=== PATIENT | female | born 1960 | race Caucasian/White ===

== ENCOUNTER → 2017-04-22 | Outpatient (CLI) | payer OTHER ==
--- NOTE | 2017-04-24 09:29 | MAM ---
EXAM DESCRIPTION: 3D Screening BILATERAL CLINICAL HISTORY: 57 yearsFemaleSCREENING no complaints. No family history of breast cancer. Postmenopausal. No HRT.. COMPARISON: Bilateral diagnostic 2-D digital mammography 05/09/2016. Digital bilateral 2-D screening examination 04/05/2016. Reports from prior examinations also reviewed. TECHNIQUE: Bilateral CC and MLO projection full-field images, 3-D tomosynthesis digital mammographic technique. Also bilateral synthesized CC/ MLO full-field images. CAD not utilized. FINDINGS: The breast parenchymal density pattern is: Heterogeneously dense breast tissue, which may obscure small masses. No skin thickening or nipple retraction focal asymmetry in the retroareolar right breast at the 600 clock position 4 cm from the nipple.. Bilateral solitary microcalcifications. No focal, stellate mass or density, , and no suspicious microcalcifications bilateral. No focal asymmetry in the left breast. IMPRESSION: BI-RADS CATEGORY: 0 - INCOMPLETE- Need additional imaging evaluation. FOLLOW-UP: Recall for additional imaging: Targeted right breast ultrasound region of interest retroareolar. Written communication explaining the results and follow-up will be mailed to the patient and referring care provider. Electronically signed by: Alton Arceo MD 04/24/2017 9:28 AM CDT Workstation: [id number]
== END | disposition home or self-care (01) ==
LOC: MAMMO 14:00
PROVIDERS: ATTEND Family Medicine
DX: Z12.31 Encounter for screening mammogram for malignant neoplasm of breast (principal)
CPT/HCPCS: 77063; G0202

== ENCOUNTER → 2017-05-20 | Outpatient (CLI) | payer OTHER ==
--- NOTE | 2017-05-20 12:12 | US ---
EXAM DESCRIPTION: Breast,Right CLINICAL HISTORY: 57 yearsFemaleABNORMAL MAMMO COMPARISON: Digital 3-D tomosynthesis screening examination, right breast 04/22/2017. Diagnostic 2-D bilateral mammographic examination 05/09/2016. TECHNIQUE: Transcutaneous scanning of the anterior mid right breast utilizing two-dimensional and Doppler modes. Scanning performed by the tin can laborer and Dr. Arceo. FINDINGS: Diffuse region of heterogeneous fibroglandular and fatty tissues at the 500 - 700 clock position of the right breast, 1 - 4 cm from the nipple. A well-defined hypoechoic mass measuring 7.1 mm in greatest diameter was visualized, at the 600 clock position, 4 cm from the nipple. Central echogenicity which is vascular. Predominantly enhanced posterior features. Parallel orientation. There are scattered attenuated posterior features from the fibroglandular tissues, but no discrete solid mass. No cysts or calcifications. IMPRESSION: BI-RADS CATEGORY: 2 - BENIGN FINDINGS. FOLLOW UP: Return to routine digital bilateral screening, one year interval from April 2017. The findings and the follow-up plan were reviewed in person with the patient after the examination. Written communication explaining the findings and follow-up, will be mailed to the patient and referring health care provider. According to the [employer], yearly mammograms are recommended starting at age 40 and continuing as long as a woman is in good health. Any breast change noted on a breast self-exam should be reported promptly to the patient's healthcare provider. Breast MRI is recommended for women with an approximately 20-25% or greater lifetime risk of breast cancer, including women with a strong family history of breast or ovarian cancer and women who have been treated for Hodgkin's disease. A negative mammographic report should not delay tissue diagnosis in patients with significant clinical history or physical findings. Extremely dense breast tissue limits the sensitivity of digital mammography. Electronically signed by: Alton Arceo MD 05/20/2017 12:10 PM CDT
== END ==
LOC: MAMMO 11:17
PROVIDERS: ATTEND Family Medicine
DX: R92.8 Other abnormal and inconclusive findings on diagnostic imaging of breast (principal)

== ENCOUNTER → 2020-03-29 | Outpatient (CLI) | payer OTHER | LOC: YCFC.O 15:18 | PROVIDERS: ATTEND Family Medicine | DX: Z20.828 Contact with and (suspected) exposure to other viral communicable diseases (principal) ==